=== PATIENT | male | born 1965 | race African-American/Black ===

== ENCOUNTER 2018-05-07 15:37 | Emergency (ER) | payer MEDICAID ==
[~2018-05-07] VITALS: Ht 177.8 cm; Wt 68.0 kg
[2018-05-07 16:05] VITALS: BP 116/66
[2018-05-07 17:26] LABS: BASOPHILS % (AUTO) 0.4 % (0.0-2.0); EOSINOPHILS % (AUTO) 0.8 % (0.0-4.0); HEMATOCRIT 46.2 % (36-52); HEMOGLOBIN 14.2 g/dL (12.0-18.0); LYMPHOCYTES # (AUTO) 1.1 K/uL (2.0-11.5); LYMPHOCYTES % (AUTO) 18.6 % (20.5-51.1); MEAN CORPUSCULAR HEMOGLOBIN 22 pg (27-31); MEAN CORPUSCULAR HGB CONC 31 g/dL (33-37); MEAN CORPUSCULAR VOLUME 72.7 fL (80-94); MONOCYTES # (AUTO) 0.3 K/uL (0.8-1.0); MONOCYTES % (AUTO) 4.7 % (1.7-9.3); NEUTROPHILS # (AUTO) 4.6 K/uL (1.8-7.7); NEUTROPHILS % (AUTO) 75.5 % (42.2-75.2); PLATELET COUNT (AUTO) 247 K/uL (140-450); RED BLOOD CELL COUNT(AUTO) 6.36 MIL/uL (4.20-6.10); RED CELL DISTRIBUTION WIDTH 14.2 % (11.6-13.7); WHITE BLOOD COUNT (AUTO) 6.1 K/uL (4.8-10.8)
[2018-05-07 17:42] LABS: ALBUMIN 4.3 g/dL (3.4-5.0); ANION GAP 13.3 (8-16); CARBON DIOXIDE 29.7 mmol/L (21-32); TOTAL BILIRUBIN 0.5 mg/dL (0.0-1.0)
[2018-05-07 17:51] LABS: PROTHROMBIN TIME 10.5 secs (10.8-13.4)
[2018-05-07] MEDS ORDERED: NACL 0.9% 2,000 ML IV ONE (20:15)
[2018-05-07 22:43] LABS: APPEARANCE,URINE CLEAR (CLEAR); BILIRUBIN,URINE 1+ (NEGATIVE); BLOOD, URINE NEGATIVE (NEGATIVE); COLOR,URINE YELLOW (YELLOW); LEUKOCYTE ESTERASE ,URINE NEGATIVE (NEGATIVE); NITRITE, URINE NEGATIVE (NEGATIVE); UGLUCOSE NEGATIVE (NEGATIVE)
[2018-05-08 10:37] VITALS: BP 100/67
== END 2018-05-08 10:37 | disposition home or self-care (01) ==
LOC: MED 15:37
DX: E86.0 Dehydration (principal); R53.1 Weakness; G81.94 Hemiplegia, unspecified affecting left nondominant side; I10 Essential (primary) hypertension; Z86.73 Personal history of transient ischemic attack (TIA), and cerebral infarction without residual deficits; Z88.0 Allergy status to penicillin
CPT/HCPCS: 36415; 71045; 80053; 81003; 82550; 83605; 83880; 84484; 85025; 85610; 85730; 87040; 87086; 93005; 96360; 96361; 99284; J7030